=== PATIENT | male | born 1985 | race Caucasian/White ===

== ENCOUNTER 2016-06-26 20:18 | Emergency (ER) | payer OTHER ==
[~2016-06-26] VITALS: Ht 193 cm; Wt 112.0 kg
[~2016-06-26 20:18] MED LIST: IBUP-103 PO
[2016-06-26 20:22] VITALS: TEMP 37.1; Ht 193 cm; Wt 112.0 kg
--- NOTE | 2016-06-26 20:51 | DIAGNOSTIC IMAGING REPORT ---
RIGHT ANKLE MIN 3 VIEWS ROUTINE CLINICAL HISTORY: injury Right trauma. Pain. COMPARISON: None. DISCUSSION: The bones and joint spaces appear intact. There is no evidence of fracture, dislocation or bony disease. Mild lateral soft tissue edema IMPRESSION: No acute bony abnormality. Mild lateral soft tissue edema. Electronically signed by: Chris Rosenthal M.D. 06/26/2016 8:50 PM Dictated Date/Time: 06/26/2016 8:49 PM
[2016-06-26] MEDS ORDERED: NORCO 5/325MG HOME PACK PO ONE (21:45)
--- NOTE | 2016-06-26 21:49 | EMERGENCY ROOM VISIT NOTE ---
ED Visit Note First contact with patient: 21:17 CHIEF COMPLAINT: Right ankle injury 2 hours ago HISTORY OF PRESENT ILLNESS: Patient is a 30-year-old white male who presents to emergency department accompanied by his parents for evaluation of a right ankle injury. He injured it a couple of hours ago while playing basketball. He stepped on another player's foot, inverting the right ankle. He notes pain and swelling in the lateral aspect of the ankle that he rates a 5/10. He came directly to the emergency department. He reports a remote history of sprains to this ankle in high school. The patient is able to bear weight on the foot but with pain. Constant pain, moderate to severe, worse with movement, weight bearing, and the dependent position. No knee pain. REVIEW OF SYSTEMS: Review of systems as per HPI. All other systems reviewed were negative. At least 6 systems reviewed. PMH: Electronic medical records are reviewed and summarized as above/below. See Problem List. SOCIAL HISTORY: Patient lives at home. Employed. Nonsmoker. PHYSICAL EXAM: Vital Signs: Reviewed Nurse's notes. MENTAL STATUS: Alert, oriented, and cooperative. The right ankle is circumferentially swollen and tender over the lateral aspect but the skin is intact and there is no ligamentous instability. Moderate joint effusion is palpable. No pain over the 5th metatarsal or fibular head. Lisfranc joint is negative. There is no deformity. The foot and toes are warm and well-perfused. Sensation to pain and light touch is intact. EMERGENCY DEPARTMENT COURSE: X-ray reveals no fracture, only the soft tissue swelling. A compression sleeve and gel splint were applied to the ankle under my direction and the position was satisfactory. Crutches were issued and patient was instructed on a non weight bearing gait. Differential diagnosis include foot verses ankle sprain/fracture, contusion, dislocation. RIGHT ANKLE MIN 3 VIEWS ROUTINE CLINICAL HISTORY: injury Right trauma. Pain. COMPARISON: None. DISCUSSION: The bones and joint spaces appear intact. There is no evidence of fracture, dislocation or bony disease. Mild lateral soft tissue edema IMPRESSION: No acute bony abnormality. Mild lateral soft tissue edema. Problem List Medical Problems: (1) Facial laceration Status: Resolved (2) Shoulder injury Status: Resolved Current/Historical Medications No Active Prescriptions or Reported Meds Allergies Coded Allergies: No Known Allergies (Unverified , 06/26/16) Vital Signs Date Time Temp Pulse Resp B/P Pulse Ox O2 Delivery O2 Flow Rate FiO2 06/26/16 22:33 70 20 115/82 97 06/26/16 20:22 37.1 102 16 128/71 97 Room Air Medications Administered Medications (Trade) Dose Ordered Sig/Concepcion Route Start Time Stop Time Status Last Admin Dose Admin Acetaminophen/ Hydrocodone Bitart ([place] 5/325mg Home Pack) 1 homepack UD ONCE PO 06/26/16 21:45 06/26/16 21:46 DC 06/26/16 22:30 1 HOMEPACK Departure Information Impression Primary Impression: Right ankle sprain Prescriptions No Active Prescriptions or Reported Meds Referrals No Doctor, Assigned (PCP) Patient Instructions My [facility] Additional Instructions Ibuprofen(Motrin, Advil) may be used for fever or pain. Use 600mg every six hours as needed. Take with food. Avoid using more than 2400mg in a 24 hour period. Do not use 2400mg per day for more than three consecutive days without physician direction. Prolonged inappropriate use can lead to stomach upset or ulcers. This medication can be taken if you need to drive, work, or perform activities which may be dangerous when taking narcotic pain medication. (AND/OR) Acetaminophen(Tylenol) may be used for fever or pain. Use 1000mg every six hours as needed. Avoid using more than 3000mg in a 24 hour period. This medication can be taken if you need to drive, work, or perform activities which may be dangerous when taking narcotic pain medication. Ice compresses for 20 minutes at a time four times daily for 2-3 days. Use the gel splint and crutches as instructed. Rest and elevate your injury. Continue current medications. Return to the ER immediately for any numbness, tingling, severe pain, extreme swelling in the extremity or as needed. Followup with your family doctor or orthopedic surgery if no improvement in 5-7 days.
[2016-06-26 22:33] VITALS: BP 115/82; PULSE 70; O2SAT 97
== END 2016-06-26 22:35 | disposition home or self-care (01) ==
LOC: C.EDB 20:19 → C.EDD 22:35
DX: S93.401A Sprain of unspecified ligament of right ankle, initial encounter (principal); M25.471 Effusion, right ankle; Y93.67 Activity, basketball; X50.9XXA Other and unspecified overexertion or strenuous movements or postures, initial encounter; Z87.828 Personal history of other (healed) physical injury and trauma

== ENCOUNTER 2021-05-30 03:07 | Inpatient (IN) ==
[2021-05-30] MEDS ORDERED: ASPIRIN CHEW 324 MG ONE (03:30)
[2021-05-30] MEDS ORDERED: NITROGLYCERIN SL 0.4 MG/TAB TAB ONE (03:30)
[2021-05-30] MEDS ORDERED: ONDANSETRON INJ 2 MG/ML 2 ML VIAL ONE (03:38)
[2021-05-30] MEDS ORDERED: NITROGLYCERIN/D5W 100MCG/ML 20ML SYR ONE (03:48)
[2021-05-30] MEDS ORDERED: HEPARIN (PORCINE) 1000 UNIT/ML 10 ML (CATH LAB USE ONLY) ONE ×2 (03:48→04:40)
[2021-05-30] MEDS ORDERED: fentaNYL citrate 100 MCG/2 ML VIAL ONE (03:48)
[2021-05-30] MEDS ORDERED: MIDAZOLAM HCL 1 MG/ML 2ML VIAL ONE ×2 (03:48→04:30)
[2021-05-30] MEDS ORDERED: niCARdipine HCL INJ 2.5 MG/ML 10 ML AMP ONE (03:48)
[2021-05-30 03:49] LABS: Basophils # (auto) 0.02 K/uL (0-0.2); Basophils % (auto) 0.4 %; Eosinophils # (auto) 0.19 K/uL (0-0.5); Eosinophils % (auto) 3.5 %; Hematocrit (blood only) 47.2 % (42-52); Hemoglobin 16.1 g/dL (14.0-18.0); Immature Granulocytes # (auto) 0.01 K/uL (0.00-0.02); Immature Granulocytes % (auto) 0.2 %; Lymphocytes % (auto) 18.6 %; Mean Corpuscular Hemoglobin 30.6 pg (25-34); Mean Corpuscular Hgb Conc 34.1 g/dL (32-36); Mean Corpuscular Volume 89.7 fL (80-100); Monocytes # (auto) 0.51 K/uL (0.11-0.59); Monocytes % (auto) 9.5 %; Neutrophils # (auto) 3.64 K/uL (1.4-6.5); Neutrophils % (auto) 67.8 %; Platelet Count 193 K/uL (130-400); RDW Coefficient of Variation 12.4 % (11.5-14.5); RDW Standard Deviation 40.3 fL (36.4-46.3); Red Blood Count 5.26 M/uL (4.7-6.1); White Blood Count 5.37 K/uL (4.8-10.8)
[2021-05-30] MEDS ORDERED: LORazepam 2 MG/4 ML VIAL ONE (03:51)
--- NOTE | 2021-05-30 04:09 | Pre Anesthesia Assessment ---
Date of Service May 30, 2021 Pre Sedation Assessment Vital Signs Temp Pulse Resp BP Pulse Ox 05/30/21 03:13 97.2 F L 83 16 160/114 H 98 Cardiovascular RRR, no murmur, no edema Respiratory normal respiratory effort, lungs clear to auscultation Pre-Sedation Airway Assessment Smoking Status: Never smoker Hx Sleep Apnea: No Hx Difficult Intubation: No Short, Thick Neck: No Oral Cavity: + WNL Mallampati Class: III ASA: ASA3 Procedure Planning Contraindications for Sedation: none Current Medications Reviewed: Yes Notes The planned sedation has been discussed with the patient. Informed Consent was obtained. I have identified the patient, determined the appropriateness of sedation and have assessed the patient immediately prior to the procedure. All medicine(s) and interventions are by my order.
[2021-05-30 04:11] LABS: Albumin Globulin Ratio 1.3 (0.9-2); Albumin Level 4.7 gm/dl (3.4-5.0); Bilirubin,Total 0.4 mg/dl (0.2-1.0); Calcium 9.8 mg/dl (8.5-10.1); Est GFR (African American) 111.7 ml/min; Est GFR (Non-African American) 96.4 ml/min; Globulin 3.5 gm/dl (2.5-4.0); Potassium 3.2 mmol/L (3.5-5.1); Total Protein 8.2 gm/dl (6.0-8.3)
--- NOTE | 2021-05-30 04:14 | Cardiology Consultation ---
Date of Consultation May 30, 2021 Assessment & Plan (1) Acute ST elevation myocardial infarction (STEMI): Presentation consistent with anterior STEMI and recommend proceeding with emergent cardiac catheterization and likely primary PCI. Discussed risks, benefits, alternatives of procedure with patient and they are willing to proceed. Given IV heparin, aspirin in ED. Further recommendations pending findings of coronary angiography. History of Present Illness History of Present Illness 35-year-old man here with acute chest pain and ECG concerning for acute [place]. Patient seen emergently in the ED after heart alert activated on arrival. No prior cardiac history. Significant family history with multiple family members with premature CAD (Father in 50, paternal grandfather from [place] in his early 40s). No other cardiac risk factors. On no new medications. He does report prior GI issues with intermittent anemia and post multiple colonoscopies. Chest pain began tonight approximately 1 AM, ~2 hours prior to arrival waking him from sleep. Describes similar pain yesterday morning while at his job ([employer]). Describes substernal pain with associated nausea, diaphoresis. Chest pain at time of arrival 09/14. Hemodynamically stable. EKG showed sutble ST elevations in V1-V2 with inferior ST depressions. SHx: ,1 child 11 months. No tobacco. Intermittent marijuana. occasional alcohol. Allergies Allergy/AdvReac Type Severity Reaction Status Date / Time No Known Allergies Allergy Unverified 06/26/16 21:13 Patient History Family History (Updated 05/30/21 @ 05:05 by Giovany Villalobos MD) Father Myocardial infarction Grandmother No problems noted. Grandfather (Paternal) Myocardial infarction Social History Smoking Status: Never smoker Feels Safe at Home: Yes Review of Systems Review of Systems: Not completed in the setting of emergent situation Physical Exam Physical Exam: General: Uncomfortable, anxious HEENT: Sclerae anicteric, Mask in place Lungs: Clear to auscultation bilaterally Cardiac: Regular rate and rhythm, no murmurs. Vascular: 2+ radial Abdomen: Soft, nontender Extremities: Well perfused, no peripheral edema Neuro: Nonfocal Psych: Alert orient x3, normal affect and mood Results & Data ([facility]) Vital Signs (Past 12 Hours) Vital Signs Temp Pulse Resp BP Pulse Ox 05/30/21 03:13 97.2 F L 83 16 160/114 H 98 PG Care Time/CCT Total # of Minutes Spent Total Time Spent with Patient: Total time spent is greater than 50% in coordination of care (as documented) at patient's floor/unit and/or counseling patient: Coding Level of Care Code 08600 Inpt Consult Level [address] elevation myocardial infarction (STEMI) I21.3
--- NOTE | 2021-05-30 04:18 | History & Physical Report ---
Date of Service May 30, 2021 Assessment & Plan (1) Acute ST elevation myocardial infarction (STEMI): Plan: 35 y/o M w/ no significant PMHx but does have pertinent FHx of early DC in PGF (40s) and father (50s) who presents w/ acute STEMI. S/p PCI w/ proximal LAD DESx1 for anterior STEMI w/ acute 100% proximal LAD occlusion. 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 K >4, Mg >2 - A1c and fasting lipid panel pending - consult cardiac Rehab - counseled on lifestyle modifications; avoid tobacco and marijuana (2) Admitted to intensive care unit: Plan: - see above (3) Percutaneous transluminal coronary angioplasty status: Plan: - see above (4) Hypokalemia: Plan: 3.2 on admission. Repletion per ICU protocol. 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 He was walking during onset of the 6/10 intensity pain and it stayed constant, did not radiate. It resolved after several hours. He awoke in the middle of the night w/ similar chest pain 4/10 intensity and had associated nausea and diaphoresis. No jaw numbness or radiation down arms. Denies other associated symptoms. He was driven to the ED by a friend and a heart alert was called upon ecg reading as STEMI. He states he had some milder transient chest pain a week ago. Denies any other prior hx of chest pain. Patient is a marijuana user but denies any hx of tobacco. After returning from cath: Chest pressure is 1-2/10 severity. Allergies Allergy/AdvReac Type Severity Reaction Status Date / Time No Known Allergies Allergy Unverified 06/26/16 21:13 Home Medications Medication Instructions Recorded Confirmed Type aspirin 81 mg tablet,delayed 81 mg PO QAM 30 Days #30 tab 06/01/21 Rx release atorvastatin 40 mg tablet 80 mg PO QAM 30 Days #60 tab 06/01/21 Rx lisinopril 5 mg tablet (Zestril) 5 mg PO QAM 30 Days #30 tab 06/01/21 Rx metoprolol succinate 50 mg 100 mg PO QAM 30 Days #60 tab 06/01/21 Rx tablet,extended release 24 hr spironolactone 25 mg tablet 12.5 mg PO QAM 30 Days #15 tab 06/01/21 Rx ticagrelor 90 mg tablet (Brilinta) 90 mg PO BID 30 Days #60 tab 06/01/21 Rx Past Med/Surg History Family History Father Myocardial infarction Grandmother No problems noted. Grandfather (Paternal) Myocardial infarction Social History Smoking Status: Current every day smoker Second Hand Exposure: No; Hx Alcohol Use: Yes Alcohol type: beer Hx Substance Use: Yes Last Used Substance: Hours (ago) Preferred Language: Greek Communication Ability: Effective Information Security Director Required: No Beliefs That Will Affect Care: None marital status: . Current Living Situation: Spouse Feels Safe at Home: No Is there a partner from a previous relationship who is making you feel unsafe now?: No Assistive Devices: None Review of Systems Review of Systems: All systems reviewed & are unremarkable except as noted in HPI & below Constitutional: Denies fever, chills Eyes: Denies blurry vision, vision changes Cardiovascular: Denies palpitations Respiratory: Denies shortness of breath Gastrointestinal: Denies abdominal pain, vomiting, constipation, diarrhea Genitourinary: Denies urinary symptoms including dysuria Musculoskeletal: Denies weakness, muscle aches/pain, joint aches/pain Neurological: Denies headache, numbness, tingling, focal weakness Physical Exam Physical Exam: General: Grossly A&O. NAD. Cooperative. HEENT: Atraumatic, normocephalic. EOMI Pulm: CTAB. -wheezes, -rales, -rhonchi. No respiratory distress. Cardiac: RRR, -mrg. Radial pulses intact and symmetrical. Abdominal: Nontender, nondistended, soft. Integ: Warm, dry, intact. TR band appropriate. Msk: Moving all extremities. Psych: Slightly anxious. Results & Data Results & Data ([facility]) Vital Signs (Past 12 Hours) Vital Signs vitals reviewed Temp Pulse Resp BP Pulse Ox 05/30/21 03:13 36.2 C L 83 16 160/114 H 98 Laboratory Results cbc wnl. K 3.2. Cr 1.00. covid neg. Lipase neg. trop pending. 05/30/21 03:33 CBC 05/30/21 Range/Units 03:33 WBC 5.37 (4.8-10.8) K/uL RBC 5.26 (4.7-6.1) M/uL Hgb 16.1 (14.0-18.0) g/dL Hct 47.2 (42-52) % Plt Count 193 (130-400) K/uL Neut # (Auto) 3.64 (1.4-6.5) K/uL Lymph # (Auto) 1.00 L (1.2-3.4) K/uL Fleming # (Auto) 0.51 (0.11-0.59) K/uL Eos # (Auto) 0.19 (0-0.5) K/uL Baso # (Auto) 0.02 (0-0.2) K/uL Intake and Output 05/29/21 05/29/21 05/30/21 14:59 22:59 06:59 Other: Weight 120.8 kg Weight Measurement Method Chair Scale Patient Weight 05/30/21 06:59 Weight 120.8 kg Diagnostic Findings cxr w/o acute findings per my interpretation. ECG Additional Comments: ECG w/ ST elevations in anteroseptal leads. ST depressions in inferior leads. NSR 72 w/ sinus arrhythmia. Normal axis and intervals. QRS duration 118. Code Status & VTE Plan Code Status full VTE Prophylaxis Plan VTE Prophylaxis will be ordered: Yes Supervising Physician Co-Signing Physician Notes Attending addendum: I have physically seen this patient, have supervised the medical residents activities, and agree with the H&P unless as otherwise noted. 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 Status post PCI to acute proximal LAD lesion and RANI x1 Continue dual antiplatelet therapy Beta-raquel, DEIDRE inhibitor and high-dose statin as per interventional cardiology Admit to intensive care unit Consult jacquard card cutter Hypokalemia- Potassium 3.2 upon admission Replace with IV, and recheck in a.m. Remaining orders and notations as noted Resident Activity Tracking Resident Involvement: Resident Care Provided Care Provided: Adult [facility] Medicine
[2021-05-30] MEDS ORDERED: TICAGRELOR 90 MG TAB PO ONE (04:46)
[2021-05-30] MEDS ORDERED: ONDANSETRON INJ 2 MG/ML 2 ML VIAL IV PRN (04:55)
[2021-05-30] MEDS ORDERED: ACETAMINOPHEN 325 MG TAB PO PRN (04:55)
[2021-05-30 05:03] LABS: Troponin I 0.29 ng/ml (0-0.04)
[2021-05-30] MEDS ORDERED: ICU PROTOCOL FOR HYPERGLYCEMIA PRN (05:08)
[2021-05-30] MEDS ORDERED: FUROSEMIDE INJ 20 MG/2 ML VIAL IV ONE (05:15)
--- NOTE | 2021-05-30 05:18 | Post Anesthesia Assessment ---
Date of Service May 30, 2021 Post Sedation Assessment Vital Signs Temp Pulse Resp BP Pulse Ox 05/30/21 03:13 97.2 F L 83 16 160/114 H 98 Recovery Score Activity: Moves 4 extremities Respiration: Deep Breath/Cough Circulation: +/-20% PreAnes Value Consciousness: Fully Awake Oxygen Saturation: O2 needed for >90% Discharge Sedation Level of Care: Fast Track Phase II Post Sedation Plan On clinical assessment, the patient appears to have tolerated the sedation without complications. Patient is recovering as anticipated. Patient will continue to be monitored by nursing and may be discharged when sedation discharge criteria are met per below protocol. Upon Completions of procedure up to 15 minutes continue every 5 minute vital signs and the P.A.R. score; then discharge to a Phase I or Fast Track to Phase II per the following guidelines: * Discharge Patient to appropriate Phase II area if PAR is 8 or greater or return to pre- procedure baseline. The post - procedure orders will be as directed. * If PAR score is less than 8 or not return to pre-procedure baseline then patient will follow Phase I monitoring till PAR is reached for Phase II. The Phase I may be done in procedure room or may call to secure a Phase I area. * If naloxone or flumazenil are used for reversal, hold in Phase I for continued monitoring from when last reversal dose was given for a minimum of 60 minutes or longer pending the nurse and/or physician discretion of patient condition before discharge to Phase II. Please call the Sedation Physician to re-evaluate and complete post-note for discharge to Phase II area. Do NOT discharge from procedure sedation or Phase 1 until post- sedation evaluation note is complete by procedure /sedation MD Sedation Discharge Instructions to be given to the patient at discharge to home.
--- NOTE | 2021-05-30 05:21 | Cardiac Catheterization ---
[facility] Data: Muffler Tender Cardiac Status Clinical evaluation leading to the procedure CAD Presenation: STEMI Anginal Classification: CCS IV Heart Failure: No Cardiogenic Shock within 24 Hours: No Cardiac Arrest within 24 Hours: No Imaging Studies Past 6 Months: No Stress Studies Past 6 Months: No Diagnostic Physicians Name: Shahab Cuello MD Status: Emergency Closure Device Percutaneous Entry Location: Radial Closure Device: Radial Band Recommendations: PCI without planned CABG PCI Indication: Immediate PCI for STEMI First Noted: First EKG Lesion Segment Name: Proximal LAD Culprit Artery: Yes Stenosis Prior to Rx (%): 100 Chronic Total Occlusion: No IVUS: No FFR: No Pre-Procedure DEON Flow: 0 Previously Treated Lesion: No Lesion Complexity: Non-High/Non-C Lesion Length (mm): 15 Thrombus Present: Yes Bifurcation Lesion: No Guidewire Across Lesion: Stenosis Post-Procedure (%): 0 Post-Procedure DEON Flow: 3 Devices(s) Deployed: Yes Yes Intraprocedure Events Significant Disection: No Perforation: No Cardiac Cath Procedure Full Procedure Date May 30, 2021 Pre-Procedure Diagnosis Pre-Procedure Diagnosis: STEMI AUC Score AUC Score: 9 Post-Procedure Diagnosis Post-Procedure Diagnosis: Severe CAD, Successful PCI and Elevated Intracardiac Pressures Procedure(s) Performed Procedure(s) Performed: Coronary Angiography, Left Heart Cath and Drug Eluting Stent Rattle Leak And Squeak Repairer Shahab Cuello MD Trade Marker(s) Chase Estimated Blood Loss Estimated Blood Loss: 15 Medication(s) Medication(s): Fentanyl, Heparin, Lidocaine 1%, Nicardipine, Nitroglycerin and Versed Medication(s): Ticagrelor Summary of Findings Indication: STEMI/Heart Alert Access: 6 Fr right radial artery Catheters: EBU 3.5 guide Findings: LM -large caliber, no significant disease LAD -acute 100% proximal occlusion. After flow reestablished large caliber vessel without significant downstream disease Circumflex -large caliber, nondominant, no significant disease. Gives off a large bifurcating OM 2 without disease RCA -small branch to marginal cannulated and without significant disease. Actual RCA not visualized. LVEDP -25 -- PCI -- Antithrombotic therapy: Heparin, ticagrelor Procedure: Left main cannulated with EBU 3.5 guide BMW wire passed across lesion into distal vessel Proximal LAD lesion predilated with 2.5 compliant balloon Dilated lesion stented with 4.0 x 22 mm [place] drug-eluting stent Stent post-dilated with 4.5 noncompliant balloon IC vasodilators administered for spasm Post procedure DEON 3 flow, stent well expanded with minimal residual stenosis and no apparent cardiac complications. Arterial Closure: TR band Summary: 1. Anterior STEMI 2. Acute 100% proximal LAD occlusion 3. No significant non-culprit coronary artery disease -RCA not visualized. 4. Elevated intracardiac filling pressure 5. Successful PCI of proximal LAD with single drug-eluting stent (4.0 x 22 mm Alexy; postdilated with 4.5 NC). Recommendations: Admit to ICU for continued monitoring Loaded with ticagrelor 180 mg in Muffler Tender Continue dual-antiplatelet therapy for at least 1 year. Trend troponins until peak, Check Echo Uptitrate beta-raquel/DEIDRE as BP allows High-dose statin IV Lasix x1 for elevated filling pressures. Replete electrolytes Consult cardiac Rehab Hemodynamics Rest Ao:: 124/94/108 Final Ao: 127/96/111 LV: 121/25 Recommendations Recommendations: PCI without planned CABG Specimens Specimens: None Radiation Exposure (mGy) 1687 Contrast (mls) 90 Fluids (cc crystalloids) Fluids (cc crystalloids): 78 Drains Drains: None Anesthesia Moderate [id number] Procedural Complication(s) None Disposition ICU I attest to the content of the Intraoperative Record and any orders documented therein. Any exceptions are noted below. [facility] Card Cath Procedure Codes Cardiac Catheterization Procedure 1: Cardiovascular Cath Procedures: 01996 Coronaries and LHC (+/-LV) Moderate Sedation Procedure 1: Sedation/Anesthesia: 49177 Mod Sedation by the same physician;Init15 Min Child Age 5 & Up Procedure 2: Sedation/Anesthesia: 85599 Mod Sedation by the same physician; Ea [id number] Minutes Stenting Procedure 1: Cardiovascular Stent Procedures: 01391 Perc transluminal revascularization of acute sub/total occl, aMI PG Care Time/CCT Total # of Minutes Spent Total Time Spent with Patient: Total time spent is greater than 50% in coordination of care (as documented) at patient's floor/unit and/or counseling patient:
--- NOTE | 2021-05-30 05:36 | Critical Care Consultation ---
Date of Consultation May 30, 2021 Assessment & Plan (1) Admitted to intensive care unit: Reason Critically Ill: 35-year-old male with acute anterior STEMI who is status post PTCA with RANI x1 to the LAD prior and close hemodynamic monitoring status post coronary intervention. NEURO - * CAM ICU: NEGATIVE CARDIAC/VASCULAR - * Acute anterior STEMI s/p PTCI w/ RANI x1 to the proximal LAD: * Received Heparin, ticagrelor, aspirin. * DAPT x1 year * ASCVD Rx per cariology recommendations. * Trend troponins. * AM Echo * Monitor on telemetry. RESPIRATORY - * No h/o pulmonary disease. * Saturating well on room air. GI/NUTRITION - * AHA Diet * Progress as tolerated. RENAL/LYTES - * Slight hyperkalemia. * Replace as needed. - * No concerns at this time. ENDO - * No h/o DM or Thyroid Dz * BSGs per unit protocol. ISS --> gtt per unit policy. HEME - * Stable H&H ID - * No concerns of infectious contribution at this time. LINES/IV ACCESS - * PIVs x2 DVT PROPHYLAXIS - * Hold on chemoprophylaxis s/p Heparin, ticagrelor, ASA. * SCDs Thank you for allowing us to participate in the care of this patient. Please refer to my attending physician's documentation for any further recommendations. (2) Acute ST elevation myocardial infarction (STEMI): Supervising Physician Co-Signing Physician Notes I have personally evaluated and examined this patient. I agree with assessment and plan of Tiago Gomez PA-C. During my evaluation patient was hypertensive and tachycardic, to receive his beta-raquel and DEIDRE this morning. Awaiting A1c. Will likely need lifestyle adjustment education. Continued observation in ICU will be stable for downgrade in 24 hours. History of Present Illness Attending Physician: Richard Gustafson MD History of Present Illness Patient is a 35-year-old male with no significant past medical history who presented to the emergency department with RIGHT-sided sternal chest discomfort over the last few hours with associated nausea and vomiting. Patient noted to have anterior STEMI on initial EKG. Heart alert called. Patient taken to the catheterization lab where he underwent PTCI x1 to the LAD which was found to be 100% occluded. Patient is with minimal discomfort rating his pain 1/10 upon arrival in the ICU. He states this is a great improvement from presentation. Otherwise, he offers no complaints at this time. Patient does carry a significant family history of early coronary artery disease on his paternal side. Allergies Allergy/AdvReac Type Severity Reaction Status Date / Time No Known Allergies Allergy Unverified 06/26/16 21:13 Patient History Family History Father Myocardial infarction Grandmother No problems noted. Grandfather (Paternal) Myocardial infarction Social History Smoking Status: Current every day smoker Second Hand Exposure: No; Do You Dip or Chew Tobacco: No; Tobacco Cessation Education Requested by Patient: No Hx Alcohol Use: Yes Alcohol type: beer Hx Substance Use: Yes Last Used Substance: Hours (ago) Preferred Language: Belarusian Communication Ability: Effective Silverlight Developer Required: No Beliefs That Will Affect Care: None Current Living Situation: Spouse Other Information That Helps Us Care for You: No Feels Safe at Home: Yes Safety Concerns: Feels Safe At This Time Assistive Devices: None Review of Systems Review of Systems: A complete 10 point review of systems was reviewed with the patient with pertinent positives and negatives as per history of present illness. All else were negative. Physical Exam Physical Exam: VITAL SIGNS - Vital signs and nursing notes were reviewed. GENERAL - 35-year-old male appearing his stated age who is in no acute distress. Communicates well with provider and answers questions appropriately. HEAD - NC/AT. EYES - PERRL with EOMI bilaterally. Sclera anicteric. NOSE - Midline and without cyanosis. MOUTH/OROPHARYNX - Without perioral cyanosis. NECK - Neck with FROM. LUNGS - Chest wall symmetric without accessory muscle use, intercostals retractions, or central cyanosis. Normal vesicular breath sounds CTA B/L. No wheezes, rales, or rhonchi appreciated. CARDIAC - RRR with S1/S2. No murmur, rubs, or gallops appreciated. No reproducible tenderness to palpation appreciated over the anterior chest wall. ABDOMEN - Abdominal contour flat without pulsations or visible masses. BS normoactive all four quadrants. No tenderness, palpable masses, hepatosplenomegaly, or ascites noted. EXTREMITIES - No clubbing or peripheral cyanosis. No pretibial edema present. +3/5 radial and dorsalis pedis pulses palpated throughout. +5/5 strength noted in UE/LE bilaterally. NEUROLOGIC - Cranial nerves II through XII grossly intact. PSYCH - A&Ox3 and cooperates fully with examiner. Pt is very pleasant and interacts well with examiner. Results & Data Results & Data ([facility]) Vital Signs (Past 12 Hours) Vital Signs Temp Pulse Resp BP Pulse Ox 05/30/21 03:13 36.2 C L 83 16 160/114 H 98 Coding Level of Care Code 73744 Inpt Consult Level 4 Diagnoses Admitted to intensive care unit Z78.[address] elevation myocardial infarction (STEMI) I21.3 Time Spent (min) 32
--- NOTE | 2021-05-30 07:46 | Emergency Department Note ---
Impression & Plan ST elevation (STEMI) myocardial infarction The patient will go to the [facility] with Dr. Cuello and be admitted by the [facility] service ED Provider Note NAME: GABO REED AGE: 35 SEX: M ARRIVES VIA: Walk-In INFORMANT: Patient ED PROVIDER(S): Bety Valdez DO CHIEF COMPLAINT: Substernal chest pain and vomiting PLAN: Disposition: Admit to the [facility] Condition: Critical MEDICAL DECISION MAKING: This is a 35-year-old male patient who presents to the emergency department having substernal chest pain and vomiting. Laboratory studies done and EKG reveals evidence of a ST segment elevation in the anteroseptal leads with reciprocal changes in the inferior leads. A heart alert was called and the patient will go to the [facility] with Dr. Cuello. Triage Nursing notes reviewed and agree with them. Additional history obtained from patient's cousin who is a nurse Vital Signs: reviewed and remarkable for hypertension Differential diagnosis: GERD, costochondritis, STEMI, NSTEMI ER treatment provided: Oral aspirin, nitro, Zofran, Ativan Diagnostics interpreted by me: ECG: Normal sinus rhythm at a rate of [address] segment elevation in leads V1, V2, V3, V4 there is no ectopy. This is consistent with an ST segment elevation ME Cardiac Monitoring: NS tachycardia at 101 Laboratory studies: See below Imaging studies: As per my interpretation Chest x-ray: No acute pulmonary infiltrates or consolidation; narrow mediastinum HPI: 35/M arrives for evaluation of chest pain and vomiting. Patient had episode earlier in the day of chest discomfort and some nausea that was substernal and slightly to the right of his chest. This caused him to rest and stop what he was doing. Tonight, however, the discomfort came back and made him significantly nauseated to the point that he vomited. He alerted his and he came to the emergency department. He describes the chest discomfort as a pressure. He has a significant family history in his father and grandfather of heart disease at a young age. ROS: See above HPI for pertinent positives & negatives. A total of 10 systems reviewed and were otherwise negative. 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 Extraocular eye muscles are intact, and sclera are anicteric. Nose - moist nasal mucosa without discharge. Mouth - moist buccal mucosa. Oropharynx is nonerythematous and there is no tonsillar exudate or edema noted. Neck: Supple; no JVD, or cervical lymphadenopathy. Heart: Regular rate and rhythm. There is a normal S1 and S2 with no murmurs, clicks, or gallops appreciated. Lungs: Clear to auscultation bilaterally with no wheezes, rales, or rhonchi. Abdomen: Soft, completely nontender, nondistended, with good bowel sounds. There are no palpable pulsatile masses or hepatosplenomegaly. There is no guarding, rigidity, or rebound noted. Extremities: No evidence of cyanosis, clubbing, or edema. There are easily palpable peripheral pulses. Skin: Pale, warm and diaphoretic with good turgor and no rashes. ED COURSE: The patient was evaluated in room B6. A complete history and physical was performed. An order was placed for continuous cardiac monitoring and the patient was in a normal sinus rhythm at a rate of 72. Patient had twelve-lead EKG which showed evidence of a STEMI and a heart alert was called. Two IVs were placed and labs were drawn. The patient was given 4 baby aspirin. He was given 1 sublingual nitroglycerin which did decrease his chest pressure. The patient was quite nauseated and was given a 4 mg of IV Zofran. A portable chest x-ray was performed. The patient was quite anxious and was given a milligram of sublingual Ativan IV. I did discuss the case at bedside with the patient's as well as with Dr. Cuello. I have personally spent greater than 60 minutes of critical care time in the direct management of this patient. This includes bedside care, interpretation of diagnostic studies, and testing, discussion with consultants, patient, and family members, and other required patient management activities. This 60 minutes is in excess of all separately billable procedures. Bety Valdez DO Past Med/Surg History Family History Father Myocardial infarction Grandmother No problems noted. Grandfather (Paternal) Myocardial infarction Social History Smoking Status: Current every day smoker Second Hand Exposure: No; Do You Dip or Chew Tobacco: No; Tobacco Cessation Education Requested by Patient: No Hx Alcohol Use: Yes Alcohol type: beer Hx Substance Use: Yes Last Used Substance: Hours (ago) Preferred Language: Yakut Communication Ability: Effective Machine Feeder Raw Stock Required: No Beliefs That Will Affect Care: None Current Living Situation: Spouse Other Information That Helps Us Care for You: No Feels Safe at Home: Yes Safety Concerns: Feels Safe At This Time Assistive Devices: None Allergies Allergies Allergy/AdvReac Type Severity Reaction Status Date / Time No Known Allergies Allergy Unverified 06/26/16 21:13 Results & Data (ED) Vital Signs Vital Signs - 24 hr 05/30/21 03:13 05/30/21 05:03 Temperature 36.2 C L Temperature Source Temporal Artery Scan Pulse Rate 83 88 Pulse Rate from SpO2 Sensor 88 Respiratory Rate 16 14 Respiratory Effort / Characteristics Non-Labored Spontaneous Respiratory Depth Normal Blood Pressure 160/114 H 161/106 H Blood Pressure Mean 129 124 Pulse Oximetry 98 97 Oxygen Delivery Method Room Air Sepsis Recent Fever Within 48 Hours No Sepsis New/Unexplained Change in Mental Status N/A Sepsis Action Taken by Nursing No Action Required Laboratory Data Result diagrams: 05/30/21 03:33 05/30/21 16:59 Lab Results 05/30/21 05/30/21 05/30/21 Range/Units 03:33 03:33 03:36 WBC 5.37 (4.8-10.8) K/uL RBC 5.26 (4.7-6.1) M/uL Hgb 16.1 (14.0-18.0) g/dL Hct 47.2 (42-52) % MCV 89.7 (80-100) fL MCH 30.6 (25-34) pg MCHC 34.1 (32-36) g/dL RDW Std Deviation 40.3 (36.4-46.3) fL RDW Coeff of Juhi 12.4 (11.5-14.5) % Plt Count 193 (130-400) K/uL MPV 11.0 H (7.4-10.4) fL Immature Gran % (Auto) 0.2 % Neut % (Auto) 67.8 % Lymph % (Auto) 18.6 % Bleckley % (Auto) 9.5 % Eos % (Auto) 3.5 % Baso % (Auto) 0.4 % Neut # (Auto) 3.64 (1.4-6.5) K/uL Lymph # (Auto) 1.00 L (1.2-3.4) K/uL Bleckley # (Auto) 0.51 (0.11-0.59) K/uL Eos # (Auto) 0.19 (0-0.5) K/uL Baso # (Auto) 0.02 (0-0.2) K/uL Immature Gran # (Auto) 0.01 (0.00-0.02) K/uL Sodium 139 (136-145) mmol/L Potassium 3.2 L (3.5-5.1) mmol/L Chloride 104 (98-107) mmol/L Carbon Dioxide 30 (21-32) mmol/L Anion Gap 5 (3-11) BUN 10 (6-23) mg/dl Creatinine 1.00 (0.6-1.4) mg/dl Est Cr Clr Drug Dosing 145.0 ml/min Est GFR ( Amer) 111.7 ml/min Est GFR (Non-Af Amer) 96.4 ml/min BUN/Creatinine Ratio 10.0 (10-20) Glucose 123 H (70-99(Fasting)) mg/dl Calcium 9.8 (8.5-10.1) mg/dl Total Bilirubin 0.4 (0.2-1.0) mg/dl AST 34 (13-39) U/L ALT 53 H (7-52) U/L Alkaline Phosphatase 87 (34-104) U/L Troponin I 0.29 H* (0-0.04) ng/ml Total Protein 8.2 (6.0-8.3) gm/dl Albumin 4.7 (3.4-5.0) gm/dl Globulin 3.5 (2.5-4.0) gm/dl Albumin/Globulin Ratio 1.3 (0.9-2) Lipase 32 (11-82) U/L SARS-CoV-2, RNA, NAAT NEGATIVE (NEGATIVE) Administered Medications Aspirin (Aspirin 81 Mg Ectab) 81 mg PO QAM [facility] Stop: 06/29/21 08:59 Last Admin: 05/30/21 08:55 Dose: 81 mg Documented by: [id number] Atorvastatin Calcium (Atorvastatin 40 Mg Tab) 80 mg PO QAM [facility] Stop: 06/29/21 08:59 Last Admin: 05/30/21 08:55 Dose: 80 mg Documented by: [id number] Lisinopril (Lisinopril 5 Mg Tab) 5 mg PO QAM [facility] Stop: 06/29/21 08:59 Last Admin: 05/30/21 08:56 Dose: 5 mg Documented by: [id number] Metoprolol Tartrate (Metoprolol Tartrate 25 Mg Tab) 25 mg PO BID [facility] Stop: 06/29/21 08:59 Last Admin: 05/30/21 20:47 Dose: 25 mg Documented by: [id number] Admin: 05/30/21 08:55 Dose: 25 mg Documented by: [id number] Ticagrelor (Ticagrelor 90 Mg Tab) 90 mg PO BID [facility] Stop: 06/29/21 20:59 Last Admin: 05/30/21 20:48 Dose: 90 mg Documented by: [id number] Discontinued Medications Aspirin (Aspirin Chew 324 Mg) Confirm Administered Dose 324 mg .ROUTE .STK-MED ONE Stop: 05/30/21 03:31 Last Admin: 05/30/21 03:32 Dose: 324 mg Documented by: [id number] Fentanyl Citrate (Fentanyl Citrate 100 Mcg/2 Ml Vial) Confirm Administered Dose 100 mcg .ROUTE .STK-MED ONE Stop: 05/30/21 03:49 Last Admin: 05/30/21 05:18 Dose: 75 mcg Documented by: [id number] Furosemide (Furosemide Inj 20 Mg/2 Ml Vial) 20 mg IV ONE ONE Stop: 05/30/21 05:16 Last Admin: 05/30/21 05:54 Dose: 20 mg Documented by: [id number] Heparin Sodium (Porcine) (Heparin (Porcine) 1000 Unit/Ml 10 Ml ([facility] Use Onl y)) Confirm Administered Dose 10,000 units .ROUTE .STK-MED ONE Stop: 05/30/21 03:49 Last Admin: 05/30/21 05:19 Dose: 10,000 units Documented by: [id number] Heparin Sodium (Porcine) (Heparin (Porcine) 1000 Unit/Ml 10 Ml ([facility] Use Only)) Confirm Administered Dose 10,000 units .ROUTE .ST-MED ONE Stop: 05/30/21 04:41 Last Admin: 05/30/21 05:19 Dose: 2,000 units Documented by: [id number] Heparin Sodium/Sodium Chloride (Heparin In Nss Infusion 1000 Unit/500 Ml (2 U/Ml) Bag) Confirm Administered Dose 3,000 units IV .ST-MED ONE Stop: 05/30/21 03:49 Last Admin: 05/30/21 05:19 Dose: 3,000 units Documented by: [id number] Lorazepam (Lorazepam 2 Mg/4 Ml Vial) Confirm Administered Dose 2 mg .ROUTE .ST- MED ONE Stop: 05/30/21 03:52 Last Increment: 05/30/21 03:55 Dose: 1 mg Documented by: [id number] Metoprolol Tartrate (Metoprolol Tartrate 1 Mg/Ml Vial) 5 mg IV NOW STA Stop: 05/30/21 14:28 Last Admin: 05/30/21 14:49 Dose: 5 mg Documented by: [id number] Metoprolol Tartrate (Metoprolol Tartrate 1 Mg/Ml Vial) Confirm Administered Dose 5 mg IV .ST-MED ONE Stop: 05/30/21 14:29 Last Admin: 05/30/21 14:49 Dose: Not Given Documented by: [id number] Midazolam HCl (Midazolam Hcl 1 Mg/Ml 2ml Vial) Confirm Administered Dose 2 mg .ROUTE .ST-MED ONE Stop: 05/30/21 03:49 Last Admin: 05/30/21 05:19 Dose: 2 mg Documented by: [id number] Midazolam HCl (Midazolam Hcl 1 Mg/Ml 2ml Vial) Confirm Administered Dose 2 mg .ROUTE .ST-MED ONE Stop: 05/30/21 04:31 Last Admin: 05/30/21 05:19 Dose: 1 mg Documented by: [id number] Nicardipine HCl (Nicardipine Hcl Inj 2.5 Mg/Ml 10 Ml Amp) Confirm Administered Dose 25 mg .ROUTE .ST-MED ONE Stop: 05/30/21 03:49 Last Admin: 05/30/21 05:19 Dose: 25 mg Documented by: [id number] Nitroglycerin (Nitroglycerin Sl 0.4 Mg/Tab Tab) Confirm Administered Dose 0.4 mg .ROUTE .STK-MED ONE Stop: 05/30/21 03:31 Last Admin: 05/30/21 03:34 Dose: 0.4 mg Documented by: [id number] Nitroglycerin (Nitroglycerin 2% Ointment 30gm Tube) Confirm Administered Dose 18 inch .ROUTE .[employer]-MED ONE Stop: 05/30/21 08:27 Last Admin: 05/30/21 09:07 Dose: Not Given Documented by: [id number] Nitroglycerin (Nitroglycerin 2% Ointment 30gm Tube) 1 inch EXT Q6H SHANDA Stop: 06/29/21 08:44 Last Admin: 05/30/21 09:06 Dose: 1 inch Documented by: [id number] Nitroglycerin/Dextrose (Nitroglycerin/D5w 100mcg/Ml 20ml Syr) Confirm Administered Dose 2,000 mcg .ROUTE .[employer]-MED ONE Stop: 05/30/21 03:49 Last Admin: 05/30/21 05:19 Dose: 2,000 mcg Documented by: [id number] Ondansetron HCl (Ondansetron Inj 2 Mg/Ml 2 Ml Vial) Confirm Administered Dose 4 mg .ROUTE .[employer]-MED ONE Stop: 05/30/21 03:39 Last Admin: 05/30/21 03:41 Dose: 4 mg Documented by: [id number] Potassium Chloride (Potassium Chloride Crtab 20 Meq Tabcr) 40 meq PO NOW STA Stop: 05/30/21 08:43 Last Admin: 05/30/21 09:00 Dose: 40 meq Documented by: [id number] Potassium Chloride (Potassium Chloride Crtab 20 Meq Tabcr) 20 meq PO NOW STA Stop: 05/30/21 20:20 Last Admin: 05/30/21 20:47 Dose: 20 meq Documented by: [id number] Ticagrelor (Ticagrelor 90 Mg Tab) Confirm Administered Dose 180 mg PO .[facility]-MED ONE Stop: 05/30/21 04:47 Last Admin: 05/30/21 05:18 Dose: 180 mg Documented by: [id number] Discharge Plan Visit Data Chief Complaint: Chest Pain Stated Complaint: CHEST PAIN ED Provider: Bety Valdez Discharge Problem: ST elevation (STEMI) myocardial infarction Patient Disposition: Admitted As Inpatient Discharge Instructions Interventions: ED Discharge Assessment Last Done: 05/30/21 04:07 Discharge Problem: ST elevation (STEMI) myocardial infarction Qualifiers: Involved coronary artery: unspecified coronary artery Qualified Code(s): I21.3 - ST elevation (STEMI) myocardial infarction of unspecified site
[2021-05-30] MEDS ORDERED: NITROGLYCERIN 2% OINTMENT 30GM TUBE ONE (08:26)
[2021-05-30] MEDS ORDERED: POTASSIUM CHLORIDE CRTAB 20 MEQ TABCR PO STA ×2 (08:42→20:19)
[2021-05-30] MEDS ORDERED: NITROGLYCERIN 2% OINTMENT 30GM TUBE EXT SCH (08:45)
--- NOTE | 2021-05-30 08:51 | XCELERA ---
[id number]\[email or web address]\[id number]
[2021-05-30] MEDS: ATORVASTATIN 40 MG TAB PO SCH (08:55)
[2021-05-30] MEDS: ASPIRIN 81 MG ECTAB PO SCH (08:55)
[2021-05-30] MEDS: METOPROLOL TARTRATE 25 MG TAB PO SCH ×2 (08:55→20:47)
[2021-05-30] MEDS: lisinopril 5 MG TAB PO SCH (08:56)
--- NOTE | 2021-05-30 09:03 | Cardiology Progress Note ---
Date of Service May 30, 2021 Assessment & Plan (1) ST elevation (STEMI) myocardial infarction: (2) Hypokalemia: (3) Coronary artery disease: (4) Cardiomyopathy: (5) Hypertension: Plan: 1. Acute anterior myocardial infarction: Symptoms improved. Very mild di scomfort is likely related to his injury. There is no objective findings consistent with recurrent ischemia. Overall he appears comfortable. Will begin medical therapy with beta-blockade as soon as the medicine arrives on the unit. Will continue dual anti-platelet therapy. Very rare ventricular ectopy on telemetry which hopefully will improve with administration of beta-blockade and repletion of electrolytes. 2. Cardiomyopathy: He has significantly reduced LV systolic function consistent with his event. Hopefully stunned myocardium. He did receive 1 dose of Lasix around the time admission. LVEDP was noted to be elevated at the time of his catheterization. Will start beta-raquel and DEIDRE-inhibitor. We will need to monitor him closely for symptoms of pulmonary vascular congestion and we dose diuretic as needed. Based on his degree of LV dysfunction he is likely a good candidate for a life vest at the time of discharge. In the setting of recurrent pulmonary edema he would be a good candidate for an aldosterone antagonist. 3. Hypertension: Nitropaste applied. Metoprolol and lisinopril will be administered as soon as these medicines arrival on the unit. He may require a dditional agents over the course of the day depending on his response. 4. Hypokalemia: I ordered potassium supplementation. Will recheck electrolytes this afternoon. 5. Continue high-dose atorvastatin Admission and Anticipated Discharge Date Admission Date: May 30, 2021 Subjective At the time of my visit the patient continued to have very mild chest discomfort that he described as a 1/10. There was no pleuritic component. He did not describe breathing difficulty. No pain at the right radial access site. No pain in the right hand. His main concern was using the commode verses a urinal. Review of Systems Review of Systems: Per HPI Physical Exam Physical Exam: The patient is alert and oriented. Mood and affect appeared normal. He answered all questions appropriately. HEENT: Pupils are equal and reactive to light and accommodation. Extraocular movements are intact. The sclerae are anicteric. Neuro: Cranial nerves intact Lungs: Clear to auscultation bilaterally. He has good air movement without use of accessory muscles. No rales wheezes or rhonchi. Cardiac: Heart demonstrates a regular rate and rhythm. Normal S1 and S2. No murmurs on examination. Pulses: Right radial access site without hematoma or ecchymosis. Good perfusion of the right hand. Palpable right radial pulse. Extremities: There was no evidence of hypoperfusion. There is no cyanosis or clubbing. Skin: I did not appreciate any rashes on examination today. Results & Data ([facility]) Vital Signs (Past 12 Hours) Vital Signs Temp Pulse Pulse Resp BP BP Pulse Ox 05/30/21 06:45 101 H 14 157/98 H 96 05/30/21 06:30 94 H 21 171/107 H 98 05/30/21 06:15 76 18 169/108 H 95 05/30/21 06:10 76 15 169/108 H 94 05/30/21 06:00 78 21 172/101 H 94 05/30/21 05:45 79 12 178/100 H 97 05/30/21 05:30 93 H 17 158/106 H 98 05/30/21 05:17 37.5 C 84 16 157/107 H 93 05/30/21 05:15 101 H 13 157/107 H 92 05/30/21 05:08 94 H 05/30/21 05:03 88 14 161/106 H 97 05/30/21 03:13 36.2 C L 83 16 160/114 H 98 Laboratory Results Abnormal Lab Results 05/30/21 05/30/21 05/30/21 03:33 03:33 03:36 WBC 5.37 RBC 5.26 Hgb 16.1 Hct 47.2 MCV 89.7 MCH 30.6 MCHC 34.1 RDW Std Deviation 40.3 RDW Coeff of Juhi 12.4 Plt Count 193 MPV 11.0 H Immature Gran % (Auto) 0.2 Neut % (Auto) 67.8 Lymph % (Auto) 18.6 Swisher % (Auto) 9.5 Eos % (Auto) 3.5 Baso % (Auto) 0.4 Neut # (Auto) 3.64 Lymph # (Auto) 1.00 L Swisher # (Auto) 0.51 Eos # (Auto) 0.19 Baso # (Auto) 0.02 Immature Gran # (Auto) 0.01 Sodium 139 Potassium 3.2 L Chloride 104 Carbon Dioxide 30 Anion Gap 5 BUN 10 Creatinine 1.00 Est Cr Clr Drug Dosing 145.0 Est GFR ( Amer) 111.7 Est GFR (Non-Af Amer) 96.4 BUN/Creatinine Ratio 10.0 Glucose 123 H POC Glucose Calcium 9.8 Total Bilirubin 0.4 AST 34 ALT 53 H Alkaline Phosphatase 87 Troponin I 0.29 H* Total Protein 8.2 Albumin 4.7 Globulin 3.5 Albumin/Globulin Ratio 1.3 Lipase 32 SARS-CoV-2, RNA, NAAT NEGATIVE 05/30/21 06:48 WBC RBC Hgb Hct MCV MCH MCHC RDW Std Deviation RDW Coeff of Juhi Plt Count MPV Immature Gran % (Auto) Neut % (Auto) Lymph % (Auto) Swisher % (Auto) Eos % (Auto) Baso % (Auto) Neut # (Auto) Lymph # (Auto) Swisher # (Auto) Eos # (Auto) Baso # (Auto) Immature Gran # (Auto) Sodium Potassium Chloride Carbon Dioxide Anion Gap BUN Creatinine Est Cr Clr Drug Dosing Est GFR ( Amer) Est GFR (Non-Af Amer) BUN/Creatinine Ratio Glucose POC Glucose 121 H Calcium Total Bilirubin AST ALT Alkaline Phosphatase Troponin I Total Protein Albumin Globulin Albumin/Globulin Ratio Lipase SARS-CoV-2, RNA, NAAT Diagnostic Findings The patient underwent cardiac catheterization revealing a proximal LAD thrombosis and 100% occlusion. He underwent successful percutaneous intervention at this site with a single drug-eluting stent. Echocardiogram obtained today revealed severely reduced LV systolic function with regional wall motion abnormalities consistent with his anterior infarct. Mild mitral regurgitation. No pericardial effusion. (1) ST elevation (STEMI) myocardial infarction Involved coronary artery: unspecified coronary artery Qualified Code(s): I21.3 - ST elevation (STEMI) myocardial infarction of unspecified site
--- NOTE | 2021-05-30 09:51 | Electrocardiogram Report ---
Test Reason : Blood Pressure : / mmHG Vent. Rate : 072 BPM Atrial Rate : 072 BPM P-R Int : 150 ms QRS Dur : 118 ms QT Int : 360 ms P-R-T Axes : 062 082 012 degrees QTc Int : 394 ms Normal sinus rhythm with sinus arrhythmia Anteroseptal infarct , possibly acute ACUTE AL / STEMI Abnormal ECG No previous ECGs available Confirmed by Shahab Gates ([id number]) on 05/30/2021 9:51:19 AM Referred By: Bety Valdez Confirmed By:Edil Gates
--- NOTE | 2021-05-30 10:03 | XRay Report ---
XR chest 1V portable CLINICAL HISTORY: Atypical chest pain TECHNIQUE: Single frontal radiograph of the chest was obtained. Comparison: None available at the time of this dictation. FINDINGS: No lines and tubes are seen. The cardiomediastinal silhouette is normal. Lungs are underinflated but clear. No evidence of pleural effusion or pneumothorax. IMPRESSION: No acute chest disease. ACT 112: Negative or not required by law. Electronically signed by: Del Ford M.D. 05/30/2021 10:02 AM
--- NOTE | 2021-05-30 11:56 | Hospitalist Progress Note ---
Date of Service May 30, 2021 Assessment & Plan (1) ST elevation (STEMI) myocardial infarction: Plan: Presents to the hospital with chest pain. Found to have acute anterior wall GA. He is now status post cardiac cath with drug-eluting stent. Cardiology currently on service. Will continue dual antiplatelet, statin, beta-raquel, DEIDRE inhibitor (2) Hypertension: Plan: Blood pressure 145/108 Continue lisinopril 5 mg daily (3) Cardiomyopathy: Plan: Found to have ejection fraction 25 to 30% on cardiac cath Most likely due to myocardial stunning However patient may be a candidate for LifeVest upon discharge. Will defer to cardiology (4) Hypokalemia: Plan: Replace potassium Admission and Anticipated Discharge Date Admission Date: May 30, 2021 Subjective patient says his chest pain is now almost resolved. complains of very mild pain Review of Systems Review of Systems: All systems reviewed are negative, apart from the ones contained in the history. Physical Exam Physical Exam: The patient is awake, alert and oriented 3, well developed and well nourished, normocephalic and atraumatic, lying in bed and in no acute distress. HEENT--PERRL, EOMI, mucous membranes and oropharynx mildly dry Neck--supple. No JVD. No bruits. Thyroid normal, trachea midline, no adenopathy. Heart--normal S1 and S2. No murmurs, rubs or gallops. Lungs--clear bilaterally, no respiratory distress, no accessory muscle use. Abdomen--normal bowel sounds and soft. Mild epigastric and left sided abdominal pain Extremities--no cyanosis or clubbing. No edema. Dermatologic--normal skin turgor, normal color, no abnormal lymph nodes, no rash. Neurologic--cranial nerves II through XII grossly intact. Rheumatologic--normal range of motion. Psychiatric--normal affect. Results & Data Results & Data ([facility]) Vital Signs (Past 12 Hours) Vital Signs Temp Pulse Pulse Resp BP BP Pulse Ox 05/30/21 09:50 74 10 L 97 05/30/21 09:40 84 13 94 05/30/21 09:30 123 H 13 96 05/30/21 09:20 81 17 96 05/30/21 09:10 83 18 98 05/30/21 09:00 90 16 145/108 H 96 05/30/21 08:50 83 16 94 01/23/22 08:40 86 14 97 05/30/21 08:30 103 H 15 95 05/30/21 08:20 83 16 95 05/30/21 08:10 84 16 93 05/30/21 08:00 97 H 13 180/98 H 94 05/30/21 07:50 84 16 93 05/30/21 07:40 79 16 93 05/30/21 07:30 82 16 93 05/30/21 07:20 98 H 17 94 05/30/21 07:10 82 17 95 05/30/21 07:00 109 H 20 167/102 H 96 05/30/21 06:50 82 16 98 05/30/21 06:45 101 H 14 157/98 H 96 05/30/21 06:30 94 H 21 171/107 H 98 05/30/21 06:15 76 18 169/108 H 95 05/30/21 06:10 76 15 169/108 H 94 05/30/21 06:00 78 21 172/101 H 94 05/30/21 05:45 79 12 178/100 H 97 05/30/21 05:30 93 H 17 158/106 H 98 05/30/21 05:17 99.5 F 84 16 157/107 H 93 05/30/21 05:15 101 H 13 157/107 H 92 05/30/21 05:08 94 H 05/30/21 05:03 88 14 161/106 H 97 05/30/21 03:13 97.2 F L 83 16 160/114 H 98 PG Care Time/CCT Total # of Minutes Spent Total Time Spent with Patient: Total time spent is greater than 50% in coordination of care (as documented) at patient's floor/unit and/or counseling patient: Coding Level of Care Code 25935 Subseq Hosp Care Lvl 2 Diagnoses Hypertension I10 Cardiomyopathy I42.[address] elevation (STEMI) myocardial infarction I21.3 Involved coronary artery: unspecified coronary artery Time Spent (min) 35 (1) ST elevation (STEMI) myocardial infarction Involved coronary artery: unspecified coronary artery Qualified Code(s): I21.3 - ST elevation (STEMI) myocardial infarction of unspecified site
[2021-05-30] MEDS ORDERED: METOPROLOL TARTRATE 1 MG/ML VIAL IV STA (14:27)
[2021-05-30] MEDS ORDERED: METOPROLOL TARTRATE 1 MG/ML VIAL IV ONE (14:28)
[2021-05-30 17:32] LABS: BUN Creatinine Ratio 10.5 (10-20); Calcium 9.3 mg/dl (8.5-10.1); Creatinine Clr Calc Pharmacy 138.1 ml/min; Est GFR (African American) 105.3 ml/min; Est GFR (Non-African American) 90.9 ml/min; Potassium 3.5 mmol/L (3.5-5.1)
[2021-05-30] MEDS: TICAGRELOR 90 MG TAB PO SCH (20:48)
[2021-05-31 04:51] LABS: Basophils # (auto) 0.02 K/uL (0-0.2); Basophils % (auto) 0.2 %; Eosinophils # (auto) 0.18 K/uL (0-0.5); Hematocrit (blood only) 46.4 % (42-52); Hemoglobin 15.7 g/dL (14.0-18.0); Immature Granulocytes # (auto) 0.01 K/uL (0.00-0.02); Immature Granulocytes % (auto) 0.1 %; Lymphocytes # (auto) 1.22 K/uL (1.2-3.4); Lymphocytes % (auto) 13.8 %; Mean Corpuscular Hemoglobin 30.3 pg (25-34); Mean Corpuscular Hgb Conc 33.8 g/dL (32-36); Mean Corpuscular Volume 89.6 fL (80-100); Mean Platelet Volume 11.3 fL (7.4-10.4); Monocytes # (auto) 0.99 K/uL (0.11-0.59); Monocytes % (auto) 11.2 %; Neutrophils # (auto) 6.45 K/uL (1.4-6.5); Neutrophils % (auto) 72.7 %; Platelet Count 190 K/uL (130-400); RDW Coefficient of Variation 12.5 % (11.5-14.5); RDW Standard Deviation 40.7 fL (36.4-46.3); Red Blood Count 5.18 M/uL (4.7-6.1); White Blood Count 8.87 K/uL (4.8-10.8)
[2021-05-31 05:14] LABS: BUN Creatinine Ratio 10.2 (10-20); Calcium 9.1 mg/dl (8.5-10.1); Chol HDL Ratio 5.8 (0-5); Est GFR (African American) 114.5 ml/min; Est GFR (Non-African American) 98.8 ml/min; Magnesium 1.9 mg/dl (1.7-2.4); Phosphorus 2.9 mg/dl (2.5-4.9); Potassium 3.3 mmol/L (3.5-5.1)
[2021-05-31] MEDS ORDERED: POTASSIUM CHLORIDE CRTAB 20 MEQ TABCR PO STA ×2 (06:15→07:48)
[2021-05-31 07:35] LABS: Estimated Average Glucose 103 mg/dl; Hemoglobin A1C 5.2 % (4.5-5.6)
--- NOTE | 2021-05-31 08:19 | Critical Care Progress Note ---
Date of Service May 31, 2021 Assessment & Plan (1) Percutaneous transluminal coronary angioplasty status: (2) Cardiomyopathy: (3) ST elevation (STEMI) myocardial infarction: Plan: Patient hemodynamically stable. Cardiology on board. Appreciate their input. Continue beta-blockade, DEIDRE inhibitor, statin and dual antiplatelet therapy. Continue replacing potassium as needed. Will likely need LifeVest prior to discharge due to low EF. Stable for downgrade today. Admission and Anticipated Discharge Date Admission Date: May 30, 2021 Subjective Patient seen and examined. He is currently chest pain-free. He had some short runs of ventricular tachycardia overnight. He is currently getting replacement potassium. Otherwise he is tolerating his diet well and denies any significant chest pain or shortness of breath. Review of Systems Review of Systems: All systems reviewed & are unremarkable except as noted in HPI & below Physical Exam Physical Exam: VITAL SIGNS - Vital signs and nursing notes were reviewed. GENERAL - 35-year-old male appearing his stated age who is in no acute distress. Communicates well with provider and answers questions appropriately. HEAD - NC/AT. EYES - PERRL with EOMI bilaterally. Sclera anicteric. NOSE - Midline and without cyanosis. MOUTH/OROPHARYNX - Without perioral cyanosis. NECK - Neck with FROM. LUNGS - Chest wall symmetric without accessory muscle use, intercostals retractions, or central cyanosis. Normal vesicular breath sounds CTA B/L. No wheezes, rales, or rhonchi appreciated. CARDIAC - RRR with S1/S2. No murmur, rubs, or gallops appreciated. No reproducible tenderness to palpation appreciated over the anterior chest wall. ABDOMEN - Abdominal contour flat without pulsations or visible masses. BS normoactive all four quadrants. No tenderness, palpable masses, hepatosplenomegaly, or ascites noted. EXTREMITIES - No clubbing or peripheral cyanosis. No pretibial edema present. +3/5 radial and dorsalis pedis pulses palpated throughout. +5/5 strength noted in UE/LE bilaterally. NEUROLOGIC - Cranial nerves II through XII grossly intact. PSYCH - A&Ox3 and cooperates fully with examiner. Pt is very pleasant and interacts well with examiner. Results & Data Results & Data ([facility]) Vital Signs (Past 12 Hours) Vital Signs Temp Pulse Resp BP Pulse Ox 05/31/21 06:00 85 20 132/93 95 05/31/21 05:00 87 16 130/89 95 05/31/21 04:00 37.0 C 96 H 18 147/92 H 96 05/31/21 03:00 83 16 136/95 92 05/31/21 02:00 93 H 16 119/77 93 05/31/21 01:00 71 16 120/77 95 05/31/21 00:00 37.1 C 66 18 129/85 96 05/30/21 23:00 88 20 128/85 96 05/30/21 22:00 80 15 139/95 95 05/30/21 21:00 93 H 18 122/79 96 vital signs, labs and imaging personally reviewed Coding Level of Care Code 62698 Subseq Hosp Care Lvl 2 Diagnoses Percutaneous transluminal coronary angioplasty status Z98.[address] elevation (STEMI) myocardial infarction I21.3 Involved coronary artery: unspecified coronary artery (1) ST elevation (STEMI) myocardial infarction Involved coronary artery: unspecified coronary artery Qualified Code(s): I21.3 - ST elevation (STEMI) myocardial infarction of unspecified site
[2021-05-31] MEDS: ATORVASTATIN 40 MG TAB PO SCH (08:51)
[2021-05-31] MEDS: lisinopril 5 MG TAB PO SCH (08:51)
[2021-05-31] MEDS: ASPIRIN 81 MG ECTAB PO SCH (08:51)
[2021-05-31] MEDS: METOPROLOL TARTRATE 25 MG TAB PO SCH ×3 (08:52→20:12)
[2021-05-31] MEDS: TICAGRELOR 90 MG TAB PO SCH ×2 (08:52→20:13)
--- NOTE | 2021-05-31 11:43 | Cardiology Progress Note ---
Date of Service May 31, 2021 Assessment & Plan (1) ST elevation (STEMI) myocardial infarction: (2) Hypokalemia: (3) Coronary artery disease: (4) Cardiomyopathy: (5) Hypertension: Plan: 1. Acute anterior myocardial infarction: Symptoms resolved. No evidence of recurrent ischemia. Some ventricular ectopy which seems to be less frequent. No dyspnea or evidence of pulmonary vascular congestion. Examination normal. Continue dual anti-platelet therapy, high-dose atorvastatin, beta blockade and Dejan inhibition. 2. Cardiomyopathy: Will need to monitor closely for evidence of pulmonary vascular congestion. Increasing metoprolol today. We may have an opportunity to increase lisinopril later. Based on his degree of LV dysfunction I recommended going home with a LifeVest. 3. Hypertension: Improved. 4. Hypokalemia: He continues to have an element of hypokalemia. Perhaps this represents hyperaldosteronism. He may benefit from an aldosterone antagonist in any event. He was supplemented with potassium again today. 5. Continue high-dose atorvastatin He appears to be doing well without complication. I would agree with downgrade to the telemetry unit. Admission and Anticipated Discharge Date Admission Date: May 30, 2021 Subjective This morning patient claimed he feeling well. No recurrence of chest discomfort or his index symptoms. No breathing difficulty. He was ambulatory to the commode without significant dizziness or dyspnea. No sense of palpitation. No discomfort at the right wrist access site. No discomfort in the right hand. Review of Systems Review of Systems: Per HPI Physical Exam Physical Exam: The patient is alert and oriented. Mood and affect appeared normal. He answered all questions appropriately. HEENT: Pupils are equal and reactive to light and accommodation. Extraocular movements are intact. The sclerae are anicteric. Neuro: Cranial nerves intact Lungs: Clear to auscultation bilaterally. He has good air movement without use of accessory muscles. No rales wheezes or rhonchi. Cardiac: Slightly tachycardic. Regular rhythm. Normal S1 and S2. No murmurs on examination. Pulses: Right radial access site without hematoma or ecchymosis. Good perfusion of the right hand. Palpable right radial pulse. Extremities: There was no evidence of hypoperfusion. There is no cyanosis or clubbing. Skin: I did not appreciate any rashes on examination today. Results & Data ([facility]) Vital Signs (Past 12 Hours) Vital Signs Temp Pulse Resp BP Pulse Ox 05/31/21 06:00 85 20 132/93 95 05/31/21 05:00 87 16 130/89 95 05/31/21 04:00 37.0 C 96 H 18 147/92 H 96 05/31/21 03:00 83 16 136/95 92 05/31/21 02:00 93 H 16 119/77 93 05/31/21 01:00 71 16 120/77 95 05/31/21 00:00 37.1 C 66 18 129/85 96 Laboratory Results Abnormal Lab Results 05/30/21 05/30/21 05/30/21 04:37 16:59 16:59 WBC RBC Hgb Hct MCV MCH MCHC RDW Std Deviation RDW Coeff of Juhi Plt Count MPV Immature Gran % (Auto) Neut % (Auto) Lymph % (Auto) Larue % (Auto) Eos % (Auto) Baso % (Auto) Neut # (Auto) Lymph # (Auto) Larue # (Auto) Eos # (Auto) Baso # (Auto) Immature Gran # (Auto) Activ Coag Time Kaolin 231 H Sodium 138 Potassium 3.5 Chloride 102 Carbon Dioxide 27 Anion Gap 9 BUN 11 Creatinine 1.05 Est Cr Clr Drug Dosing 138.1 Est GFR ( Amer) 105.3 Est GFR (Non-Af Amer) 90.9 BUN/Creatinine Ratio 10.5 Glucose 106 H Estimat Average Glucose Hemoglobin A1c Calcium 9.3 Phosphorus Magnesium Troponin I > 73.00 H* Triglycerides Cholesterol LDL Cholesterol Direct LDL Cholesterol, Calc VLDL Cholesterol, Calc HDL Cholesterol Cholesterol/HDL Ratio 05/31/21 05/31/21 05/31/21 04:24 04:24 04:24 WBC 8.87 RBC 5.18 Hgb 15.7 Hct 46.4 MCV 89.6 MCH 30.3 MCHC 33.8 RDW Std Deviation 40.7 RDW Coeff of Juhi 12.5 Plt Count 190 MPV 11.3 H Immature Gran % (Auto) 0.1 Neut % (Auto) 72.7 Lymph % (Auto) 13.8 Larue % (Auto) 11.2 Eos % (Auto) 2.0 Baso % (Auto) 0.2 Neut # (Auto) 6.45 Lymph # (Auto) 1.22 Larue # (Auto) 0.99 H Eos # (Auto) 0.18 Baso # (Auto) 0.02 Immature Gran # (Auto) 0.01 Activ Coag Time Kaolin Sodium 137 Potassium 3.3 L Chloride 101 Carbon Dioxide 28 Anion Gap 8 BUN 10 Creatinine 0.98 Est Cr Clr Drug Dosing 148.0 Est GFR ( Amer) 114.5 Est GFR (Non-Af Amer) 98.8 BUN/Creatinine Ratio 10.2 Glucose 104 H Estimat Average Glucose 103 Hemoglobin A1c 5.2 Calcium 9.1 Phosphorus 2.9 Magnesium 1.9 Troponin I Triglycerides 211 H Cholesterol 161 LDL Cholesterol Direct 110 LDL Cholesterol, Calc 91 VLDL Cholesterol, Calc 42 H HDL Cholesterol 28 Cholesterol/HDL Ratio 5.8 H Diagnostic Findings The patient underwent cardiac catheterization revealing a proximal LAD thrombosis and 100% occlusion. He underwent successful percutaneous intervention at this site with a single drug-eluting stent. Echocardiogram obtained yesterday revealed severely reduced LV systolic function with regional wall motion abnormalities consistent with his anterior infarct. Mild mitral regurgitation. No pericardial effusion. PG Care Time/CCT Total # of Minutes Spent Total Time Spent with Patient: Total time spent is greater than 50% in coordination of care (as documented) at patient's floor/unit and/or counseling patient: Coding Level of Care Code 74681 Subseq Hosp Care Lvl [address] elevation (STEMI) myocardial infarction I21.3 Involved coronary artery: unspecified coronary artery Hypokalemia E87.6 Coronary artery disease I25.10 Cardiomyopathy I42.9 Hypertension I10 (1) ST elevation (STEMI) myocardial infarction Involved coronary artery: unspecified coronary artery Qualified Code(s): I21.3 - ST elevation (STEMI) myocardial infarction of unspecified site
--- NOTE | 2021-05-31 13:00 | Hospitalist Progress Note ---
Date of Service May 31, 2021 Assessment & Plan (1) ST elevation (STEMI) myocardial infarction: Plan: Presented to the hospital with chest pain. Found to have acute anterior wall [place]. He is now status post cardiac cath with drug-eluting stent successfully deployed Cardiology currently on service. Will continue dual antiplatelet, statin, beta-rqauel, DEIDRE inhibitor (2) Hypertension: Plan: Blood pressure 132/93 today Continue lisinopril 5 mg daily (3) Cardiomyopathy: Plan: Found to have ejection fraction 25 to 30% on cardiac cath Most likely due to myocardial stunning However patient may be a candidate for LifeVest upon discharge. Will defer to cardiology (4) Hypokalemia: Plan: Replace potassium Plan: Patient may benefit from cardiac rehab Admission and Anticipated Discharge Date Admission Date: May 30, 2021 Subjective patient seen and examined today, denies chest pain or SOB Review of Systems Review of Systems: All systems reviewed are negative, apart from the ones contained in the history. Physical Exam Physical Exam: The patient is awake, alert and oriented 3, well developed and well nourished, normocephalic and atraumatic, lying in bed and in no acute distress. HEENT--PERRL, EOMI, mucous membranes and oropharynx mildly dry Neck--supple. No JVD. No bruits. Thyroid normal, trachea midline, no adenopathy. Heart--normal S1 and S2. No murmurs, rubs or gallops. Lungs--clear bilaterally, no respiratory distress, no accessory muscle use. Abdomen--normal bowel sounds and soft. Mild epigastric and left sided abdominal pain Extremities--no cyanosis or clubbing. No edema. Dermatologic--normal skin turgor, normal color, no abnormal lymph nodes, no rash. Neurologic--cranial nerves II through XII grossly intact. Rheumatologic--normal range of motion. Psychiatric--normal affect. Results & Data Results & Data ([facility]) Vital Signs (Past 12 Hours) Vital Signs Temp Pulse Resp BP Pulse Ox 05/31/21 06:00 85 20 132/93 95 05/31/21 05:00 87 16 130/89 95 05/31/21 04:00 98.6 F 96 H 18 147/92 H 96 05/31/21 03:00 83 16 136/95 92 05/31/21 02:00 93 H 16 119/77 93 05/31/21 01:00 71 16 120/77 95 PG Care Time/CCT Total # of Minutes Spent Total Time Spent with Patient: Total time spent is greater than 50% in coordination of care (as documented) at patient's floor/unit and/or counseling patient: Coding Level of Care Code 85331 Subseq Hosp Care Lvl [address] elevation (STEMI) myocardial infarction I21.3 Involved coronary artery: unspecified coronary artery Hypertension I10 Cardiomyopathy I42.9 Hypokalemia E87.6 Time Spent (min) 35 (1) ST elevation (STEMI) myocardial infarction Involved coronary artery: unspecified coronary artery Qualified Code(s): I21.3 - ST elevation (STEMI) myocardial infarction of unspecified site
[2021-05-31 17:50] LABS: Albumin Globulin Ratio 1.3 (0.9-2); Albumin Level 4.3 gm/dl (3.4-5.0); BUN Creatinine Ratio 12.8 (10-20); Bilirubin,Total 0.8 mg/dl (0.2-1.0); Calcium 9.1 mg/dl (8.5-10.1); Creatinine Clr Calc Pharmacy 154.2 ml/min; Est GFR (African American) 120.4 ml/min; Est GFR (Non-African American) 103.9 ml/min; Globulin 3.2 gm/dl (2.5-4.0); Potassium 3.9 mmol/L (3.5-5.1); Total Protein 7.5 gm/dl (6.0-8.3)
[2021-06-01] MEDS: METOPROLOL TARTRATE 25 MG TAB PO SCH ×2 (01:59→07:51)
[2021-06-01 04:44] LABS: Basophils # (auto) 0.03 K/uL (0-0.2); Basophils % (auto) 0.4 %; Eosinophils # (auto) 0.24 K/uL (0-0.5); Eosinophils % (auto) 2.8 %; Hematocrit (blood only) 46.4 % (42-52); Hemoglobin 15.8 g/dL (14.0-18.0); Immature Granulocytes # (auto) 0.02 K/uL (0.00-0.02); Immature Granulocytes % (auto) 0.2 %; Lymphocytes # (auto) 1.49 K/uL (1.2-3.4); Lymphocytes % (auto) 17.5 %; Mean Corpuscular Hemoglobin 30.4 pg (25-34); Mean Corpuscular Hgb Conc 34.1 g/dL (32-36); Mean Corpuscular Volume 89.2 fL (80-100); Mean Platelet Volume 11.4 fL (7.4-10.4); Monocytes # (auto) 0.89 K/uL (0.11-0.59); Monocytes % (auto) 10.5 %; Neutrophils # (auto) 5.83 K/uL (1.4-6.5); Neutrophils % (auto) 68.6 %; Platelet Count 209 K/uL (130-400); RDW Coefficient of Variation 12.4 % (11.5-14.5); RDW Standard Deviation 40.1 fL (36.4-46.3)
[2021-06-01 05:11] LABS: BUN Creatinine Ratio 14.3 (10-20); Calcium 9.1 mg/dl (8.5-10.1); Creatinine Clr Calc Pharmacy 172.6 ml/min; Est GFR (African American) 130.6 ml/min; Est GFR (Non-African American) 112.6 ml/min; Potassium 3.7 mmol/L (3.5-5.1)
[2021-06-01] MEDS: ATORVASTATIN 40 MG TAB PO SCH (07:51)
[2021-06-01] MEDS: lisinopril 5 MG TAB PO SCH (07:51)
[2021-06-01] MEDS: ASPIRIN 81 MG ECTAB PO SCH (07:51)
[2021-06-01] MEDS: TICAGRELOR 90 MG TAB PO SCH (07:52)
--- NOTE | 2021-06-01 08:31 | XCELERA ---
[id number]
--- NOTE | 2021-06-01 09:14 | Cardiology Progress Note ---
Date of Service June 01, 2021 Assessment & Plan (1) ST elevation (STEMI) myocardial infarction: Plan: Post primary PCI with RANI to proximal LAD 05/30/2021 2. Ischemic cardiomyopathyEF 30 to 35% 3. Nonsustained VT 4. Dyslipidemia 5. History of prior GI bleeding No recurrent chest pain. Hemodynamically stable. No signs of heart failure on exam. No access site complications. Repeat limited echo reviewedLV function slightly improved, still 30 to 35%. No clear LV thrombus. Have patient up walking in halls this morningif asymptomatic, electrically stable okay with discharge later today when LifeVest in place Continue DAPT with aspirin, ticagrelor Home on Toprol-XL 100 mg daily, lisinopril 5 mg daily Start spironolactone 12.5 mg daily Continue current statin Follow-up with me in 1 week. Admission and Anticipated Discharge Date Admission Date: May 30, 2021 Subjective Feeling well this morning. No residual chest pain. No other new concerns. Telemetry reviewedfew episodes of nonsustained VT, longest 10 beats last night. Review of Systems Review of Systems: All systems reviewed & are unremarkable except as noted in HPI & below Physical Exam Physical Exam: General: Comfortable HEENT: Sclerae anicteric Lungs: Clear to auscultation bilaterally, no crackles Cardiac: Regular rate and rhythm, no murmurs. Vascular: 2+ radial. No ecchymosis or hematoma at right radial access site Abdomen: Soft, nontender Extremities: Well perfused, no peripheral edema Neuro: Nonfocal Psych: Alert orient x3, normal affect and mood Results & Data ([facility]) Vital Signs (Past 12 Hours) Vital Signs Temp Pulse Resp BP Pulse Ox 06/01/21 07:45 99.3 F 92 H 16 105/76 98 06/01/21 04:06 98.8 F 87 20 131/92 95 06/01/21 00:00 99.1 F 85 16 121/79 95 PG Care Time/CCT Total # of Minutes Spent Total Time Spent with Patient: Total time spent is greater than 50% in coordination of care (as documented) at patient's floor/unit and/or counseling patient: Coding Level of Care Code 52451 Subseq Hosp Care Lvl [address] elevation (STEMI) myocardial infarction I21.3 Involved coronary artery: unspecified coronary artery (1) ST elevation (STEMI) myocardial infarction Involved coronary artery: unspecified coronary artery Qualified Code(s): I21.3 - ST elevation (STEMI) myocardial infarction of unspecified site
[2021-06-01] MEDS ORDERED: SPIRONOLACTONE 12.5 MG TAB PO SCH (09:15)
--- NOTE | 2021-06-01 12:51 | Discharge Summary ---
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 He was walking during onset of the 6/10 intensity pain and it stayed constant, did not radiate. It resolved after several hours. He awoke in the middle of the night w/ similar chest pain 4/10 intensity and had associated nausea and diaphoresis. No jaw numbness or radiation down arms. Denies other associated symptoms. He was driven to the ED by a friend and a heart alert was called upon ecg reading as STEMI. He states he had some milder transient chest pain a week ago. Denies any other prior hx of chest pain. Patient is a marijuana user but denies any hx of tobacco. After returning from cath: Chest pressure is 1-2/10 severity. Principal Diagnosis STEMI Discharge Exam The patient is awake, alert and oriented 3, well developed and well nourished, normocephalic and atraumatic, lying in bed and in no acute distress. HEENT--PERRL, EOMI, mucous membranes and oropharynx mildly dry Neck--supple. No JVD. No bruits. Thyroid normal, trachea midline, no adenopathy. Heart--normal S1 and S2. No murmurs, rubs or gallops. Lungs--clear bilaterally, no respiratory distress, no accessory muscle use. Abdomen--normal bowel sounds and soft. Mild epigastric and left sided abdominal pain Extremities--no cyanosis or clubbing. No edema. Dermatologic--normal skin turgor, normal color, no abnormal lymph nodes, no r anastacio. Neurologic--cranial nerves II through XII grossly intact. Rheumatologic--normal range of motion. Psychiatric--normal affect. Discharge Data Allergies Allergy/AdvReac Type Severity Reaction Status Date / Time No Known Allergies Allergy Unverified 06/26/16 21:13 Consultations 05/30/21 05:00 Consult Cardiac Rehabilitation Routine 05/30/21 05:08 Consult Academic Support Specialist Routine Procedures Performed Operation Date: 05/30/21 16:00 Actual Procedures p Aspiration/PCI w/RANI for Stemi - Lopez Cuello MD s Cath, Left with Cors and Vent - Lopez Cuello MD s Cineradiography w/Routine Exam - Lopez Cuello MD Ordered Studies 05/30/21 03:50 CL Cath Imgs for PACS use only Stat Hospital Course (1) ST elevation (STEMI) myocardial infarction: Presented to the hospital with chest pain. Found to have acute anterior wall [place]. He is now status post cardiac cath with drug-eluting stent successfully deployed Cardiology currently on service. Will continue dual antiplatelet, statin, beta-raquel, DEIDRE inhibitor (2) Hypertension: Blood pressure 132/93 today Continue lisinopril 5 mg daily (3) Cardiomyopathy: Found to have ejection fraction 25 to 30% on cardiac cath Most likely due to myocardial stunning Patient has been hooked up to LifeVest prior to discharge (4) Hypokalemia: Replace potassium Discharge home after picking up a LifeVest, cardiology will arrange cardiac rehab Total Time Total Time Spent Total Time Spent (In Minutes): 35 Discharge Plan Discharge Items Patient Disposition: Home - Self-Care Reason For Visit: STEMI Discharge Diagnosis: STEMI Condition on Discharge: Good Activity: Per Instructions section Lifting: Gradually increase as tolerated Non-emergency contact: Primary Care Provider and Director Fundraising Call non-emergency contact if: you have any medication questions Follow-up/Referrals: PCP,NO [Primary Care Provider] - Diet: Heart Healthy Addtl Attending Provider Instructions: please make appointment to follow up with your litigation attorney regarding cardiac Rehab. Also make appointment with a Assembly Machine [employer] for a sleep study Pending Studies at Discharge: No Stand-Alone Forms: My [employer], Smoking Cessation Medications and DC Order Prescriptions: New Brilinta 90 mg Tablet 90 mg PO BID 30 Days Qty: 60 RF: 0 atorvastatin 40 mg Tablet 80 mg PO QAM 30 Days Qty: 60 RF: 0 metoprolol succinate 50 mg Tablet Extended Release 24 Hr 100 mg PO QAM 30 Days Qty: 60 RF: 0 aspirin 81 mg Tablet,Delayed Release (Dr/Ec) 81 mg PO QAM 30 Days Qty: 30 RF: 0 spironolactone 25 mg Tablet 12.5 mg PO QAM 30 Days Qty: 15 RF: 0 lisinopril [Zestril] 5 mg Tablet 5 mg PO QAM 30 Days Qty: 30 RF: 0 Discharge Orders: Discharge Order (Routine); Ordered 06/01/21 Ordered By: Nathan Jackson Admission Data Admit Date/Time: 05/30/21 05:08 Attending Provider: Nathan Jackson Admit Provider: Lopez Cuello Primary Care Provider: PCP,NO Other Providers: David Walters Coding Level of Care Code D/C DAY MANAGEMENT >[address] elevation (STEMI) myocardial infarction I21.3 Involved coronary artery: unspecified coronary artery Hypertension I10 Cardiomyopathy I42.9 Hypokalemia E87.6 Time Spent (min) 35
[2021-06-01] MEDS ORDERED: TICAGRELOR 90 MG Homepack PO ONE (13:32)
[2021-06-02] MEDS ORDERED: METOPROLOL SUCC 50MG EXT REL TAB PO SCH (09:00)
--- NOTE | 2021-06-08 00:24 | Billing Data ---
Date of Service June 08, 2021 Coding Level of Care Code Critical Care 06 06- mins
== END 2021-06-01 13:43 | disposition home or self-care (01) | DRG 247 ==
LOC: ED 03:07 → CC 04:07 → ED 04:07 → 1E 05:06 → SUATTDRO 05:06